=== PATIENT | male | born 1990 | race Caucasian/White ===

== ENCOUNTER → 2017-07-28 10:38 | Outpatient (CLI) | payer MEDICAID | END | disposition home or self-care (01) | LOC: D.MRI 10:30 | DX: R55 Syncope and collapse (principal) ==

== ENCOUNTER 2018-11-10 07:05 | Day surgery (SDC) | payer MEDICAID ==
[~2018-11-10] VITALS: Ht 182.9 cm; Wt 77.1 kg
[2018-11-10 07:56] VITALS: BP 123/75; Ht 182.9 cm; Wt 77.1 kg
--- NOTE | 2018-11-10 13:25 | NUR ---
1325 FL DIET SERVED.
--- NOTE | 2018-11-10 15:42 | OP ---
PATIENT NAME: ISAIAS ALVAREZ MEDICAL RECORD: [id number] :88 LOCATION:[facility] ADMISSION DATE: SURGEON: GRANT LEBLANC MD DATE OF OPERATION: 11/10/2018 SURGEON: Grant Leblanc MD ANESTHESIA: General anesthesia by TERRENCE John. DIAGNOSIS: Male sterilization. PROCEDURE: Bilateral vasectomy. SPECIMENS: Right vas deferens, left vas deferens. BLOOD LOSS: Minimal. CLINICAL HISTORY: This is a 27-year-old male, who has been 4 years. He has 2 children and his is currently again. They do not wish to have any more children after this. HE IS ALLERGIC TO PENICILLIN. He was given Levaquin IV status controller to the OR. DESCRIPTION OF PROCEDURE: The patient was given induction of general anesthesia in supine position. He was then shaved, prepped and draped. The left vas deferens was palpated and trapped between 2 sets of fingers. A towel clamp was placed through the scrotal skin to trap the vas deferens and prevent it from migrating. The skin overlying the vas deferens was then infiltrated with 1% lidocaine with epinephrine. A 1-cm incision was made over the skin. The dartos fascia was incised using the cautery. A Atilio clamp was placed underneath the vas deferens and lifted up. Hemostats were placed on either end of the vas deferens segment that was exposed. This left an intervening segment of about 1 cm. This intervening segment was cut out using Metzenbaum scissors. The segment that was cut out was sent to pathology for identification and diagnosis. The cut vasal ends were then cauterized. The vasal ends were ligated using 3-0 Prolene ties. Any bleeding points were then cauterized. The 2 vasal ends were then allowed to retract back into the left hemiscrotum. The skin was closed using simple interrupted 3-0 Vicryl. The identical procedure was performed on the right side. At the end of the procedure, fluffs and mesh panties were given to the patient. I will see the patient in followup in 2 weeks' time to check on wound healing. TRANSINT:[id number] Voice Confirmation ID: [id number] DOCUMENT ID: [id number] GRANT LEBLANC MD at 1542 CC: [id number] DICTATION DATE: 11/10/18 1246 EXTENSION FORESTER: 11/10/18 1307 [facility] [place] 11/10/18 [place] [id number] [facility], [facility]
== END 2018-11-10 14:30 | disposition home or self-care (01) ==
LOC: D.OPS 07:05 → D.PAN 07:30 → D.OPS 07:30 → D.PAN 08:20 → D.OPS 08:30 → D.PAN 08:30 → D.OPS 09:30
PROVIDERS: ATTEND Urology
DX: Z30.2 Encounter for sterilization (principal); Z88.0 Allergy status to penicillin; Z01.812 Encounter for preprocedural laboratory examination

== ENCOUNTER → 2018-12-29 14:11 | Outpatient (CLI) | payer MEDICAID ==
[2018-11-10 07:56] VITALS: BMI 23.1
== END | disposition home or self-care (01) ==
LOC: D.LABREF 14:11
PROVIDERS: ATTEND Urology
DX: Z98.52 Vasectomy status (principal)